=== PATIENT | female | born 2000 | race African-American/Black ===

== ENCOUNTER 2023-01-04 16:10 | Emergency (ER) | payer OTHER ==
[2023-01-04 16:56] VITALS: BP 112/75; PULSE 87; RESP 18; TEMP 98.8; BMI 23.9
[2023-01-04] MEDS ORDERED: DIPHTH,PERTUSS(ACELL),TET 0.5 ML DISP.SYRIN IM ONE ×2 (17:11→17:16)
== END 2023-01-04 17:23 | disposition home or self-care (01) ==
LOC: FER 16:10
PROC: 3E0234Z Introduction of Serum, Toxoid and Vaccine into Muscle, Percutaneous Approach (ICD-10-PCS; principal; 2023-01-04)
DX: S91.302D Unspecified open wound, left foot, subsequent encounter (principal); V86.4 Person injured while boarding or alighting from special all-terrain or other off-road motor vehicle
CPT/HCPCS: 90471; 90715; 99284-25